=== PATIENT | male | born 1935 | race Caucasian/White ===

== ENCOUNTER 2016-10-06 05:52 | Inpatient (IN) | payer MEDICARE, BC ==
[2016-10-06] MEDS ORDERED: RINGERS SOLUTION,LACTATED 1,000 ML IV PRN (06:00)
[2016-10-06] MEDS ORDERED: ceFAZolin SODIUM 1 GM VIAL IV PRN (06:00)
[2016-10-06] MEDS ORDERED: ROPIVACAINE HCL/PF 100 MG, KETOROLAC TROMETHAMINE 30 MG, EPINEPHrine 0.2 MG in NORMAL S... IJ PRN (06:00)
[2016-10-06] MEDS ORDERED: TRANEXAMIC ACID 1,000 MG in NORMAL SALINE 100 ML IV PRN (06:00)
--- NOTE | 2016-10-06 07:39 | PREOP NOTE ---
Preoperative Progress Note - Preoperative Changes Changes to Preop Condition?: No Changes
[2016-10-06] MEDS ORDERED: RINGERS SOLUTION,LACTATED 800 ML IV ONE (07:40)
[2016-10-06] MEDS ORDERED: RINGERS SOLUTION,LACTATED 1,000 ML IV ONE (09:30)
[2016-10-06] MEDS ORDERED: MAGNESIUM HYDROXIDE 30 ML UDC PO PRN (09:55)
[2016-10-06] MEDS ORDERED: MAG HYDROX/ALUMINUM HYD/SIMETH 30 ML UDC PO PRN (09:55)
[2016-10-06] MEDS ORDERED: ONDANSETRON HCL/PF 2 MG/ML VIAL IV PRN (09:55)
[2016-10-06] MEDS ORDERED: oxyCODONE HCL/ACETAMINOPHEN 1 TAB TABLET PO PRN (09:55)
[2016-10-06] MEDS ORDERED: PROMETHAZINE HCL 5 MG in DEXTROSE 5 % IN WATER 50 ML IV PRN ×2 (09:55)
[2016-10-06] MEDS ORDERED: ZOLPIDEM TARTRATE 5 MG TABLET PO PRN (09:55)
[2016-10-06] MEDS ORDERED: diphenhydrAMINE HCL 50 MG/ML VIAL IV PRN (09:55)
[2016-10-06] MEDS ORDERED: HYDROmorphone HCL 1 MG/ML DISP.SYRIN IV PRN (09:55)
[2016-10-06] MEDS ORDERED: ACETAMINOPHEN 500 MG TABLET PO PRN (09:55)
--- NOTE | 2016-10-06 10:00 | OR ---
Operative Report - Dictated Report Narrative: Date: 10/06/2016 Preoperative diagnosis: Right Knee degenerative joint disease. Postoperative diagnosis: Right Knee degenerative joint disease. Procedure: Right Total knee arthroplasty. Surgeon: Tru Curry M.D. Rag Production Worker: Emerson Mckeon PA-C Anesthesia: Spinal with regional block and local periarticular joint injection. Complications: None Specimens: Bone for disposal. Estimated blood loss: Minimal. Tourniquet time: 90 Minutes at 325 millimeters of mercury. Retained implants: Depuy Attune size 8 right lugged cemented posterior stabilized femoral component. Size 8 fixed-bearing cemented tibial platform. 8 by 5 millimeter posterior stabilized cross-linked tibial insert. 41 millimeter medialized patella button. Indications: Mr. Broderick is a 81-year-old gentleman who had bilateral knee arthrosis and previously underwent a left total knee arthroplasty. He is here today for his right total knee. This patient was followed in my clinic for period of time with significant complaints of right knee pain consistent with arthritic changes. They had failed conservative measures including, but not limited to, activity modification, passage of time, medications, and other conservative measures. Patient wished to proceed with surgical treatment. The risks, benefits, and alternatives were discussed in clinic. The risks of , blood clots, bleeding, infection, nerve/tendon blood vessel/ injury, malposition of components, intraoperative fracture, postoperative limited range of motion, persistent pain, failure of components, and need for additional procedures. Patient wished to proceed consent was obtained after answering all questions. Procedure: After marking the correct extremity on the floor, the patient was taken to the operating room. A timeout was performed. IV antibiotics consisting of Ancef were administered prior to the procedure. A regional followed by spinal anesthetic was induced by anesthesia on the operative table with all bony prominences well-padded. Lewis catheter was placed, and a bump was placed under the operative side buttock. SCDs and LILLIANA hose were utilized on the nonoperative leg. A well-padded tourniquet was applied to the operative thigh. The operative leg was then pre-scrubbed with alcoho,l prepped, and draped in a standard sterile fashion. After exsanguinating the extremity with an Esmarch bandage, the tourniquet was inflated. After marking out the anterior knee for standard incision centered over the patella, the skin was incised and dissected down to the joint retinaculum. The joint retinaculum was marked out as well as the horizontal axis of the patella, and a standard medial parapatellar arthrotomy was then made. The most proximal aspect of the quadriceps tendon and the patella tendon insertion were protected from release. A partial synovectomy was performed as well as a resection of the infrapatellar fat pad. The distal femoral fat pad proximal to the trochlea was also resected using cautery. The soft tissues were elevated off the medial aspect of the proximal tibia using a Castillo elevator ensuring that we did not transect the medial collateral ligament. Upon initial evaluation range of motion was approximately 5 degrees to 130 degrees of flexion. There were signs of advanced arthrosis in the medial and patellofemoral greater than the lateral joint spaces. There were large marginal osteophytes which were removed with a rongeur. The knee was hyperflexed and the patella was tucked laterally. Protecting the surrounding soft tissues with Homans, an entry drill was placed down the femoral canal using Whitesides line for guidance into the entry point. The intramedullary femoral alignment brien was utilized in order to cut the distal femur in 5 degrees of valgus resecting 10 millimeters of bone. Next the distal femur was sized to a size 8. A posterior referencing guide was utilized to place the distal femoral cutting block in 3 degrees of external rotation. This was pinned into place. The rotation was confirmed both visually and based on anatomic landmarks. The 4 in 1 cutting jig of the appropriate size was utilized in order to make all bony cuts. The angle wing was used to ensure no notching. Retractors were utilized in order to protect surrounding soft tissues. This cut did not result in any excessive notching. We then cut the box centered over the distal femur. This allowed for resection of the anterior and posterior cruciate ligaments. I then turned my attention to the preparation of the tibia. Using an extra medullary tibial alignment brien, 4 millimeters of bone was resected off the medial articular surface. This was made perpendicular to the mechanical axis of the joint with the alignment brien centered over the ankle mortise. The alignment brien was checked and was noted to be parallel to the mechanical axis, centered over the medial one third of the tibial tubercle, paralleling the anterior surface of the tibia. We then turned our attention to the remaining meniscus and soft tissues. These were removed while protecting the surrounding ligaments and soft tissues. The marginal osteophytes off the anterior, posterior, medial, lateral aspects of the femur and tibia were removed. The tibia was sized out to a size 8. Next the tibia was drilled and punched in an externally rotated position. Next the trial femur and a series of tibial inserts were utilized in order to allow for full extension and maximal flexion. It was found that a 5 millimeter insert gave the best range of motion and stability at multiple flexion points as well as at full extension there was less than 2 mm of gapping both medially and laterally. There is minimal anterior translation with the knee at 90 degrees of flexion and no signs of being able to dislocate the knee. The patella was then prepared. The initial thickness was 25 millimeters. This was reamed down to 15 millimeters parallel to the anterior surface of the patella. It was sized out to a size 41 medialized patella button. This was then drilled and trialed. Without any medial restraint the patella tracked appropriately and did not sublux or dislocate. At this point, it was felt these were the appropriate sized implants, and all trials were removed. The standard periarticular joint injection consisting of ropivacaine, Toradol, and epinephrine were injected into the periarticular joint tissues. The bony surfaces were thoroughly irrigated with a pulsatile- suction saline irrigation device. A bone plug from the prior resected anterior chamfer cut was placed into the drill hole at the distal femur. The bony surfaces were then dried in preparation for placement of the implants. The cement was vacuum mixed per the interlocking pavement installer's instructions. The cement was placed on the dry bony surfaces and posterior aspect of the implants. The implants were impacted into place, removing all extruded cement. At this point anesthesia administered tranexamic acid per protocol intravenously. The knee was placed in extension with axial loading with the trial insert while the cement cured. Once the cement cured, all remaining extruded cement was removed. The knee was placed through a range of motion with the trial insert to ensure appropriate range of motion and stability. Final range of motion was approximately 0 to 130 degrees. The knee was again thoroughly irrigated with pulsatile saline lavage. The final polyethylene insert was then impacted into place ensuring no retained soft tissues. The remaining periarticular joint injection was injected. A medium Hemovac drain was placed exiting superior laterally. The knee was then placed over a triangle and the arthrotomy was closed with interrupted #1 Vicryl after thoroughly irrigating the joint. The deep and subcutaneous tissues were closed with interrupted oh and 3-0 Vicryl respectively. Skin was closed with a running subcutaneous 3-0 Monocryl and trice. Xeroform, 4 x 4's, ABD, Sof-Rol, and a full leg Royal wrap were applied. All sponge, needle, blade, and instrument counts were correct prior to closing the wounds. Postoperative condition: The patient was awoken and transferred to the postanesthesia care unit in stable condition. Plan is to be admitted to the inpatient medical/surgical floor postoperatively for 24 hours of IV antibiotics , physical therapy, occupational therapy, and medical comanagement. Patient will be weightbearing as tolerated with range of motion as tolerated. DVT prophylaxis will be with SCDs, LILLIANA hose, and pharmacological anticoagulation. Anticipated hospital stay is approximately 2-4 days.
[2016-10-06] MEDS: KETOROLAC TROMETHAMINE 15 MG/ML VIAL IV SCH ×3 (10:53→22:10)
[2016-10-06] MEDS: DEXTROSE 5%-LACTATED RINGERS 1,000 ML IV PRN ×2 (10:53→19:37)
[2016-10-06] MEDS: ceFAZolin SODIUM 1 GM in DEXTROSE 5 % IN WATER 100 ML IV SCH ×4 (11:04→17:06)
[2016-10-06] MEDS: MORPHINE SULFATE 15 MG TABLET.SA PO SCH (22:09)
[2016-10-06] MEDS: SENNOSIDES/DOCUSATE SODIUM 1 TAB TABLET PO SCH (22:11)
[2016-10-06] MEDS: CALCIUM CARBONATE/VITAMIN D3 1 TAB TABLET PO SCH (22:11)
[2016-10-07] MEDS: ceFAZolin SODIUM 1 GM in DEXTROSE 5 % IN WATER 100 ML IV SCH ×2 (01:26)
[2016-10-07] MEDS: KETOROLAC TROMETHAMINE 15 MG/ML VIAL IV SCH ×4 (04:02→22:27)
[2016-10-07] MEDS: DEXTROSE 5%-LACTATED RINGERS 1,000 ML IV PRN (04:02)
[2016-10-07 05:38] LABS: Hematocrit 30.9 % (42.0-52.0); Hemoglobin 10.5 gm/dL (13.5-18.0); Mean Cell Volume 95.1 fl (78-100); Mean Corpuscular Hemoglobin 32.3 pg (27-31); Mean Platelet Volume 10.1 fl (6.0-9.5); Platelet Count 110 K/mm3 (150-450); Red Blood Count 3.25 M/mm3 (4.7-6.0); Red Cell Distribution Width 14.1 % (11.5-14.0); White Blood Count 5.8 K/mm3 (4.0-10.5)
[2016-10-07 05:51] LABS: Anion Gap 12.4 mmol/L (6.8-13.8); Carbon Dioxide 24.4 mmol/L (24-32.6); Estimated Creat Clear 64.7; Potassium 3.8 mmol/L (3.4-4.6)
[2016-10-07] MEDS: LEVOTHYROXINE SODIUM 112 MCG TABLET PO SCH (06:47)
--- NOTE | 2016-10-07 07:34 | PN ---
Subjective - Date and Time Seen Date: 10/07/16 Time: 07:33 Subjective Narrative: Consult for post -op medical management. afebrile . no complaints. has walked around in the room with PT this orning. Objective - Review of Systems Generalized/Overall Review: Denies: Weakness, Fever EENTM: Reports: No Symptoms Reported Respiratory: Denies: Cough, Shortness of Breath Cardiac: Denies: Chest Pain, Palpitations Abdominal: Denies: Nausea, Vomiting Genitourinary Symptoms: Denies: Urgency, Frequency Musculoskeletal Complaints: Denies: Joint Pain - says thyey numbed differently this time - Vitals Vitals: Last Vital Signs Temp 37.0 C 10/06/16 15:00 Pulse 66 10/06/16 15:00 Resp 18 10/06/16 15:00 BP 131/59 10/06/16 15:00 Pulse Ox 97 10/06/16 15:00 - Abnormal Lab Findings Abnormal Lab Findings: Abnormal Lab Results 10/07/16 Range/Units 04:40 RBC 3.25 L (4.7-6.0) M/mm3 Hgb 10.5 L (13.5-18.0) gm/dL Hct 30.9 L (42.0-52.0) % MCH 32.3 H (27-31) pg RDW 14.1 H (11.5-14.0) % Plt Count 110 L (150-450) K/mm3 MPV 10.1 H (6.0-9.5) fl - Exam Constitutional: Present: Alert, Oriented x3, Cooperative ENT Exam: Present: hearing grossly normal Neck: Present: supple Breasts: Present: Exam deferred Respiratory: Present: normal breath sounds, No rales, No wheezing Cardiovascular/Chest: Present: regular rate, rhythm, no JVD, systolic murmur Abdomen: Present: Normal bowel sounds, soft, nontender, nondistended Extremity: Present: no pedal edema, no calf tenderness Cauti Physician Documentation - Urinary Catheter Management Urethral (Lewis) Date of Insertion: 10/06/16 Time of Insertion: 08:15 Assessment/Plan - Problems/Diagnosis (1) S/P total knee arthroplasty Problem: Acute Qualifiers: Laterality: right Qualified Code(s): Z96.651 - Presence of right artificial knee joint Narrative: postop day # 1. afebrile. continue with PT/OT (2) Anemia associated with acute blood loss Problem: Acute (3) Ascending aortic aneurysm Problem: Chronic Narrative: s/p replacment and AVR with bioprosthetic valve
--- NOTE | 2016-10-07 08:06 | PN ---
Subjective - Date and Time Seen Date: 10/07/16 Time: 08:04 Subjective Narrative: Subjective: Reports mild numbness to his leg. Was able to walk around the bed with therapy. Pain is well-controlled. Voiding without any complications. Tolerating by mouth intake. Denies any nausea or vomiting. Denies calf pain. Slept well. Physical exam: Alert and oriented to person, place and time Right lower Extremity: Palpable dorsalis pedis pulse. Sensation grossly intact to light touch. Dressings clean and dry. Able to flex and extend ankle and toes. No excessive drainage. Calf and thigh are soft and nontender. Assessment: Postop day 1 status post right total knee arthroplasty. Plan: Continue with physical and occupational therapy weightbearing as tolerated. Continue with anticoagulation. 24 hours postoperative prophylactic antibiotics. Pain control with goal to rely on oral medications. Continue bowel regimen. Will need 6 weeks with walker or assitive device to protect joint while ambulating during the recovery process. Discharge planning. Discontinue drain and Lewis catheter. Repeat labs in a.m. Objective - Vitals Vitals: Last Vital Signs Temp 37.0 C 10/06/16 15:00 Pulse 65 10/07/16 04:00 Resp 18 10/07/16 04:00 BP 131/67 10/07/16 04:00 Pulse Ox 95 10/07/16 04:00 - Abnormal Lab Findings Abnormal Lab Findings: Abnormal Lab Results 10/07/16 Range/Units 04:40 RBC 3.25 L (4.7-6.0) M/mm3 Hgb 10.5 L (13.5-18.0) gm/dL Hct 30.9 L (42.0-52.0) % MCH 32.3 H (27-31) pg RDW 14.1 H (11.5-14.0) % Plt Count 110 L (150-450) K/mm3 MPV 10.1 H (6.0-9.5) fl Cauti Physician Documentation - Urinary Catheter Management Urethral (Lewis) Date of Insertion: 10/06/16 Time of Insertion: 08:15 Assessment/Plan - Problems/Diagnosis (1) S/P total knee arthroplasty Problem: Acute Qualifiers: Laterality: right Qualified Code(s): Z96.651 - Presence of right artificial knee joint (2) Ascending aortic aneurysm Problem: Chronic (3) Anemia associated with acute blood loss Problem: Acute (4) History of aortic aneurysm repair Problem: Chronic (5) Hypertension Problem: Chronic (6) Hypothyroidism Problem: Chronic Qualifiers: Hypothyroidism type: acquired Qualified Code(s): E03.9 - Hypothyroidism, unspecified (7) Osteoporosis Problem: Chronic
[2016-10-07] MEDS: MORPHINE SULFATE 15 MG TABLET.SA PO SCH ×2 (08:49→20:04)
[2016-10-07] MEDS: MULTIVITAMINS 1 CAP CAPSULE PO SCH (08:50)
[2016-10-07] MEDS: FINASTERIDE 5 MG TABLET PO SCH (08:50)
[2016-10-07] MEDS: OMEGA-3 FATTY ACIDS 1 CAP CAPSULE PO SCH (08:50)
[2016-10-07] MEDS: TAMSULOSIN HCL 0.4 MG CAP.SR.24H PO SCH (08:50)
[2016-10-07] MEDS: CALCIUM CARBONATE/VITAMIN D3 1 TAB TABLET PO SCH ×2 (08:50→20:04)
[2016-10-07] MEDS: ENOXAPARIN SODIUM 40 MG/0.4 ML SYRG SC SCH (08:50)
[2016-10-07] MEDS: SENNOSIDES/DOCUSATE SODIUM 1 TAB TABLET PO SCH (20:05)
[2016-10-08] MEDS: KETOROLAC TROMETHAMINE 15 MG/ML VIAL IV SCH (04:11)
[2016-10-08 05:39] LABS: Hematocrit 29.3 % (42.0-52.0); Hemoglobin 9.9 gm/dL (13.5-18.0); Mean Cell Volume 95.8 fl (78-100); Mean Corpuscular Hemoglobin 32.4 pg (27-31); Mean Corpuscular Hgb Conc 33.8 g/dl (32-36); Mean Platelet Volume 10.6 fl (6.0-9.5); Platelet Count 111 K/mm3 (150-450); Red Blood Count 3.06 M/mm3 (4.7-6.0); Red Cell Distribution Width 14.3 % (11.5-14.0); White Blood Count 5.9 K/mm3 (4.0-10.5)
[2016-10-08 05:49] LABS: BUN/Creatinine Ratio 19.6 (9.0-21.6); Calcium * 7.9 mg/dL (7.9-10.9); Carbon Dioxide 23.7 mmol/L (24-32.6); Estimated Creat Clear 66.7; Potassium 3.7 mmol/L (3.4-4.6)
[2016-10-08] MEDS: LEVOTHYROXINE SODIUM 112 MCG TABLET PO SCH (06:50)
[2016-10-08] MEDS: FINASTERIDE 5 MG TABLET PO SCH (09:26)
[2016-10-08] MEDS: MULTIVITAMINS 1 CAP CAPSULE PO SCH (09:26)
[2016-10-08] MEDS: OMEGA-3 FATTY ACIDS 1 CAP CAPSULE PO SCH (09:26)
[2016-10-08] MEDS: TAMSULOSIN HCL 0.4 MG CAP.SR.24H PO SCH (09:26)
[2016-10-08] MEDS: CALCIUM CARBONATE/VITAMIN D3 1 TAB TABLET PO SCH (09:26)
[2016-10-08] MEDS: ENOXAPARIN SODIUM 40 MG/0.4 ML SYRG SC SCH (09:26)
[2016-10-08] MEDS: MORPHINE SULFATE 15 MG TABLET.SA PO SCH (09:29)
[2016-10-08 10:58] VITALS: BP 132/64
--- NOTE | 2016-10-08 11:50 | DS ---
(1) S/P total knee arthroplasty Problem: Acute Qualifiers: Laterality: right Qualified Code(s): Z96.651 - Presence of right artificial knee joint (2) Ascending aortic aneurysm Problem: Chronic (3) Anemia associated with acute blood loss Problem: Acute (4) History of aortic aneurysm repair Problem: Chronic (5) Hypertension Problem: Chronic (6) Hypothyroidism Problem: Chronic Qualifiers: Hypothyroidism type: acquired Qualified Code(s): E03.9 - Hypothyroidism, unspecified (7) Osteoporosis Problem: Chronic Description of Stay: Mr. Broderick was admitted to the floor after undergoing right total knee arthroplasty. Tolerated this well. Was admitted to the floor postoperatively for 24 hours of IV antibiotics, pain control, medical comanagement, and occupational and physical therapy. OT and PT were consulted to assist with activities of daily living and ambulation. Was made weightbearing as tolerated with range of motion as tolerated. Pain was initially controlled with IV regimen. This was transitioned to oral once tolerating a by mouth intake. Was resumed on home diet and medications. Had a Lewis catheter inserted and the operating room which was discontinued on postoperative day 1. A drain was placed intraoperatively into the knee which was discontinued on postoperative day 1. Lovenox SCD and LILLIANA hose were utilized for DVT prophylaxis. Vital signs remained stable to the hospital course. Serial labs were obtained which showed a final hemoglobin of 9.9 grams. BMP was reviewed and was stable. Physical examination throughout the hospital course showed an extremity that had sensation that was intact to light touch, palpable pulses, a benign wound, motor intact to the toes, ankle, and knee. Knee range of motion was approximately 0 degrees to 60 degrees. Once an oral pain regimen was tolerated and physical therapy goals were met, it was felt that they were stable for discharge to home. Instructions: Continue with weightbearing as tolerated and range of motion as tolerated. Keep the wound clean and dry. Cover with dry gauze and tape. Change every 2-3 days as needed. Cover wound while showering. Continue with physical therapy. Resume home diet. Report any fever over 101.5 Fahrenheit, uncontrolled pain, increased drainage, foul odor of drainage, new or increased calf pain or shortness of breath, or any other significant complaints. A 325mg dialy aspirin will be started after finishing anticoagulation if not allergic. Continue with LILLIANA hose on the operative extremity until instructed otherwise. No driving until instructed otherwise. Follow up in approximately 10-14 days. Procedures Performed: see notes below List Procedures: Right total knee arthroplasty Discharge Disposition: Home self care Disposition: Home self-care Condition: Good Discharge Activity: Activity as tolerated, Weight bearing Discharge Diet: General/regular food Residential Therapy: Physicial Therapy Referrals: Mónica Calderon MD [Primary Care Provider] - Additional Patient Instructions (free text): Follow-up in the office with Dr. Curry on 10-21-16@9:45am. PT at [facility] on Thursday, 10/10, at 7:45am. Please arrive 15 minutes early for this appointment. Prescriptions (Any new or edited meds): Enoxaparin Sodium [Lovenox] 40 mg SC Q24H #8 disp.syrin Morphine Sulfate [Ms Contin] 15 mg PO Q12H #20 tablet.sa Sennosides/Docusate Sodium [Senokot-S] 2 tab PO HS #60 tablet oxyCODONE HCL/ACETAMINOPHEN [Percocet 5 MG/325 MG] 2 tab PO Q4H PRN #90 tablet PRN Reason: Moderate Pain Complete Home Medications List: Complete Home Medication List: Alendronate Sodium 35 mg PO FR 10/03/15 Levothyroxine Sodium [Synthroid] 112 mcg PO DAILY 10/03/15 [place]-3 Fatty Acids/Fish Oil [Fish Oil 1,000 mg Capsule] 1 each PO DAILY Calcium Carbonate/Vitamin D3 [Caltrate 600 + D Soft Chew Tab] 1 each PO BID Calcium Carbonate/Vitamin D3 [Caltrate 600 Plus D3 Tablet] 1 each PO DAILY 09/03 Finasteride [Proscar] 5 mg PO DAILY 09/03/16 Methotrexate Sodium [Methotrexate] 15 mg PO SA 09/03/16 Multivitamins [Multivitamin Moises] 1 cap PO DAILY 09/03/16 Tamsulosin HCl [Flomax] 0.4 mg PO DAILY 09/03/16 Enoxaparin Sodium [Lovenox] 40 mg SC Q24H #8 disp.syrin 10/08/16 Morphine Sulfate [Ms Contin] 15 mg PO Q12H #20 tablet.sa 10/08/16 Sennosides/Docusate Sodium [Senokot-S] 2 tab PO HS #60 tablet 10/08/16 oxyCODONE HCL/ACETAMINOPHEN [Percocet 5 MG/325 MG] 2 tab PO Q4H PRN #90 tablet 10/08/16
--- NOTE | 2016-10-08 12:01 | PN ---
Subjective - Date and Time Seen Date: 10/08/16 Time: 11:58 Subjective Narrative: Patient is doing PT/OT. He is going home today. Objective - Review of Systems Generalized/Overall Review: Reports: Weakness. Denies: Chills, Weight gain EENTM: Reports: No Symptoms Reported Respiratory: Denies: Cough, Shortness of Breath Cardiac: Denies: Chest Pain, Palpitations Abdominal: Denies: Nausea, Vomiting Genitourinary Symptoms: Denies: Urgency, Frequency Musculoskeletal Complaints: Reports: Joint Pain - tolerable - Vitals Vitals: Last Vital Signs Temp 36.6 C 10/08/16 10:57 Pulse 72 10/08/16 10:57 Resp 18 10/08/16 10:57 BP 132/64 10/08/16 10:57 Pulse Ox 98 10/08/16 10:57 - Abnormal Lab Findings Abnormal Lab Findings: Abnormal Lab Results 10/08/16 10/08/16 Range/Units 04:45 04:45 RBC 3.06 L (4.7-6.0) M/mm3 Hgb 9.9 L (13.5-18.0) gm/dL Hct 29.3 L (42.0-52.0) % MCH 32.4 H (27-31) pg RDW 14.3 H (11.5-14.0) % Plt Count 111 L (150-450) K/mm3 MPV 10.6 H (6.0-9.5) fl Carbon Dioxide 23.7 L (24-32.6) mmol/L Anion Gap 14.0 H (6.8-13.8) mmol/L - Exam Constitutional: Present: Alert, Oriented x3, Cooperative ENT Exam: Present: hearing grossly normal Neck: Present: supple Breasts: Present: Exam deferred Respiratory: Present: normal breath sounds, No rales, No wheezing Cardiovascular/Chest: Present: regular rate, rhythm, no JVD, systolic murmur Extremity: Present: no pedal edema, no calf tenderness Cauti Physician Documentation - Urinary Catheter Management Urethral (Lewis) Date of Insertion: 10/06/16 Time of Insertion: 08:15 Assessment/Plan - Problems/Diagnosis (1) S/P total knee arthroplasty Problem: Acute Qualifiers: Laterality: right Qualified Code(s): Z96.651 - Presence of right artificial knee joint Narrative: continue with PT/OT. he is for discharge today by Ortho (2) Anemia associated with acute blood loss Problem: Acute Narrative: stable. (3) Ascending aortic aneurysm Problem: Chronic
== END 2016-10-08 16:47 | disposition home or self-care (01) | DRG 470 ==
LOC: MS 05:52
PROVIDERS: ADMIT Orthopaedic Surgery; ATTEND Orthopaedic Surgery
PROC: 0SRC0J9 Replacement of Right Knee Joint with Synthetic Substitute, Cemented, Open Approach (ICD-10-PCS; principal; 2016-10-06 08:00)
DX: M17.11 Unilateral primary osteoarthritis, right knee (principal); D62 Acute posthemorrhagic anemia; I10 Essential (primary) hypertension; E03.9 Hypothyroidism, unspecified; Z79.82 Long term (current) use of aspirin; Z95.2 Presence of prosthetic heart valve